=== PATIENT | female | born 1965 | race Caucasian/White ===

== ENCOUNTER 2022-02-06 14:55 | Emergency (ER) | payer BC ==
[~2022-02-06] VITALS: Ht 170.2 cm; Wt 66.5 kg
[2022-02-06] MEDS ORDERED: cloNIDine HCL 0.1 MG TAB PO ONE (15:15)
[2022-02-06] MEDS ORDERED: hydrALAZINE HCL 20 MG/ML VL IV ONE (15:15)
[2022-02-06 16:16] VITALS: BP 152/81
[2022-02-06] MEDS ORDERED: LISI-716 PO (16:28)
[2022-02-06] MEDS ORDERED: CLON0.2T PO (16:28)
== END 2022-02-06 16:44 | disposition home or self-care (01) ==
LOC: ER 14:59
DX: I16.0 Hypertensive urgency (principal)

== ENCOUNTER 2022-02-20 18:38 | Inpatient (IN) | payer BC ==
[~2022-02-20] VITALS: Ht 170.2 cm; Wt 67.0 kg
[~2022-02-20 18:38] MED LIST: CLON0.2T PO; LISI-716 PO
[2022-02-20] MEDS ORDERED: SODIUM CHLORIDE 0.9% 1,000 ML IV ONE (20:00)
[2022-02-20] MEDS ORDERED: ONDANSETRON HCL 4 MG/2 ML VIAL IV ONE (20:00)
[2022-02-20] MEDS ORDERED: cloNIDine HCL 0.1 MG TAB PO ONE (20:00)
[2022-02-20] MEDS ORDERED: ACETAMINOPHEN 325 MG TAB PO ONE (20:00)
[2022-02-20 20:50] LABS: Basophils # (auto) 0.1 10 ^3/uL (0-0.2); Basophils % (auto) 0.9 % (0.0-2.0); Eosinophils # (auto) 0 10 ^3/uL (0-0.8); Eosinophils % (auto) 0.4 % (0.0-7.0); Hematocrit 34.2 % (36.0-46.0); Hemoglobin 11.1 g/dL (12.2-16.2); Lymphocytes % (auto) 12.5 % (10.0-50.0); Mean Corpuscular Hemoglobin 27.8 pg (28.0-32.0); Mean Corpuscular Hgb Conc. 32.4 g/dL (32.0-36.0); Mean Corpuscular Volume 85.8 fL (80.0-100.0); Monocytes # (auto) 0.4 10 ^3/uL (0-1.3); Monocytes % (auto) 4.8 % (0.0-12.0); Neutrophils # (auto) 6.3 10 ^3/uL (1.6-8.6); Neutrophils % (auto) 81.4 % (37.0-80.0); Nucleated Red Blood Cells % 0.1 %; Red Blood Cells 3.99 10^6/uL (4.0-5.20); Red Cell Distribution Width 14.8 % (11.8-14.3); White Blood Cell 7.8 10^3/uL (4.4-10.8)
[2022-02-20 21:07] LABS: Albumin 2.9 g/dL (3.4-5.0); BUN/Creatinine Ratio 11.3; Calcium 9.3 mg/dL (8.5-10.1); Potassium 4.5 mmol/L (3.5-5.1)
[2022-02-20 21:10] LABS: Bilirubin, Total 0.5 mg/dL (0.2-1.0)
[2022-02-20] MEDS ORDERED: NITROGLYCERIN 0.4 MG SL TAB SL ONE (21:45)
[2022-02-20] MEDS ORDERED: ASPirin 325 MG TAB PO ONE (21:45)
[2022-02-21] MEDS ORDERED: MAALOX PLUS or MAALOX 30 ML PO ONE (00:15)
[2022-02-21] MEDS ORDERED: ONDANSETRON HCL 4 MG/2 ML VIAL IV PRN (00:15)
[2022-02-21] MEDS ORDERED: NITROGLYCERIN 0.4 MG SL TAB SL PRN (00:15)
[2022-02-21] MEDS ORDERED: DEXTROSE (50%) 50ML SYRG IV PRN (00:15)
[2022-02-21] MEDS ORDERED: LORazepam 0.5 MG TAB PO PRN (00:15)
[2022-02-21] MEDS ORDERED: MORPHINE SULFATE 4 MG/ML SYR/VIAL IV PRN (00:15)
[2022-02-21] MEDS ORDERED: ZOLPIDEM TARTRATE 5 MG TAB PO PRN (00:15)
[2022-02-21 01:36] LABS: Urine Bacteria MOD /hpf (None Seen); Urine Blood 1+ /uL (Negative); Urine Specific Gravity 1.019 (1.001-1.035); Urine WBC 3 /hpf (0 - 5)
[2022-02-21] MEDS: ENOXAPARIN SOD 80 MG/0.8ML SYRINGE SC SCH ×2 (01:57→21:52)
[2022-02-21 05:28] LABS: BUN/Creatinine Ratio 11.8; Basophils # (auto) 0.1 10 ^3/uL (0-0.2); Basophils % (auto) 0.8 % (0.0-2.0); Calcium 8.2 mg/dL (8.5-10.1); Eosinophils # (auto) 0 10 ^3/uL (0-0.8); Eosinophils % (auto) 0.1 % (0.0-7.0); Hematocrit 31.5 % (36.0-46.0); Hemoglobin 10.3 g/dL (12.2-16.2); Lymphocytes # (auto) 0.9 10 ^3/uL (0.4-5.4); Lymphocytes % (auto) 11.9 % (10.0-50.0); Mean Corpuscular Hemoglobin 28.9 pg (28.0-32.0); Mean Corpuscular Hgb Conc. 32.8 g/dL (32.0-36.0); Mean Corpuscular Volume 88.1 fL (80.0-100.0); Monocytes # (auto) 0.2 10 ^3/uL (0-1.3); Monocytes % (auto) 2.8 % (0.0-12.0); Neutrophils # (auto) 6.2 10 ^3/uL (1.6-8.6); Neutrophils % (auto) 84.4 % (37.0-80.0); Potassium 4.9 mmol/L (3.5-5.1); Red Blood Cells 3.57 10^6/uL (4.0-5.20); Red Cell Distribution Width 14.8 % (11.8-14.3); White Blood Cell 7.3 10^3/uL (4.4-10.8)
[2022-02-21] MEDS: cloNIDine HCL 0.1 MG TAB PO PRN ×2 (05:33→21:51)
[2022-02-21] MEDS: ACCU-CHEK COMFORT CURVE STRIP VI SCH ×4 (06:21→23:52)
[2022-02-21] MEDS: InsuLIN REG 1unit/0.01ml Soln (100units/ml) SC SCH ×4 (06:22→23:53)
[2022-02-21] MEDS ORDERED: SUMA25TA2 PO (07:16)
[2022-02-21] MEDS ORDERED: CHLO25TA2 PO (07:16)
[2022-02-21] MEDS ORDERED: NIFE1TAB31 PO (07:16)
[2022-02-21] MEDS ORDERED: INSRTEST IV (07:16)
[2022-02-21] MEDS ORDERED: INSU100I47 SC (07:16)
[2022-02-21 07:51] VITALS: BP 127/62
[2022-02-21 08:00] VITALS: BP 127/62
[2022-02-21] MEDS: CLOPIDOGREL BISULFATE 75 MG TAB PO SCH (09:59)
[2022-02-21] MEDS: ASPirin 81 mg TAB PO SCH (09:59)
[2022-02-21] MEDS: METOPROLOL TARTRATE 25 MG TAB PO SCH ×2 (10:00→21:49)
[2022-02-21] MEDS: DOCUSATE SOD 100 MG CAP PO SCH (10:00)
[2022-02-21] MEDS: LISINOPRIL 20 MG TAB PO SCH (10:00)
[2022-02-21 11:55] VITALS: BP 167/80
[2022-02-21 14:49] LABS: Creatinine, Urine 111 mg/dL (30.0-125.0); Sodium Urine 31 mmol/L (40-220)
[2022-02-21 14:58] LABS: Protein, Urine 915.2 mg/dL (0.0-11.9)
[2022-02-21 17:00] VITALS: BP 153/84
[2022-02-21] MEDS: ATORVASTATIN 20 MG TAB PO SCH (21:50)
[2022-02-22] VITALS (7 sets, daily range): BP systolic 122–182; BP diastolic 74–94
[2022-02-22] MEDS: ACCU-CHEK COMFORT CURVE STRIP VI SCH ×3 (05:54→18:19)
[2022-02-22] MEDS: InsuLIN REG 1unit/0.01ml Soln (100units/ml) SC SCH ×3 (05:55→19:53)
[2022-02-22 06:38] LABS: Basophils # (auto) 0.1 10 ^3/uL (0-0.2); Basophils % (auto) 1.3 % (0.0-2.0); Eosinophils # (auto) 0.1 10 ^3/uL (0-0.8); Eosinophils % (auto) 1.8 % (0.0-7.0); Hematocrit 28.9 % (36.0-46.0); Hemoglobin 9.8 g/dL (12.2-16.2); Lymphocytes # (auto) 2.4 10 ^3/uL (0.4-5.4); Lymphocytes % (auto) 31.8 % (10.0-50.0); Mean Corpuscular Hemoglobin 29.1 pg (28.0-32.0); Mean Corpuscular Hgb Conc. 33.8 g/dL (32.0-36.0); Monocytes # (auto) 0.4 10 ^3/uL (0-1.3); Monocytes % (auto) 5.1 % (0.0-12.0); Neutrophils # (auto) 4.5 10 ^3/uL (1.6-8.6); Red Blood Cells 3.36 10^6/uL (4.0-5.20); Red Cell Distribution Width 14.6 % (11.8-14.3); White Blood Cell 7.5 10^3/uL (4.4-10.8)
[2022-02-22 06:40] LABS: Potassium 4.1 mmol/L (3.5-5.1)
[2022-02-22 06:46] LABS: BUN/Creatinine Ratio 13.1; Calcium 8.5 mg/dL (8.5-10.1); Magnesium 2.5 mg/dL (1.6-2.6)
[2022-02-22] MEDS: cloNIDine HCL 0.1 MG TAB PO PRN (07:51)
[2022-02-22] MEDS: CLOPIDOGREL BISULFATE 75 MG TAB PO SCH (10:21)
[2022-02-22] MEDS: METOPROLOL TARTRATE 25 MG TAB PO SCH ×2 (10:22→22:06)
[2022-02-22] MEDS: ASPirin 81 mg TAB PO SCH (10:22)
[2022-02-22] MEDS: DOCUSATE SOD 100 MG CAP PO SCH (10:22)
[2022-02-22] MEDS: LISINOPRIL 20 MG TAB PO SCH (10:22)
[2022-02-22] MEDS: CALCIUM ACETATE 667 MG CAP PO SCH ×2 (13:05→18:19)
[2022-02-22] MEDS ORDERED: FUROSEMIDE 40 MG/4 ML VIAL IV ONE (13:30)
[2022-02-22] MEDS ORDERED: hydrALAZINE HCL 25 MG TAB PO ONE (13:45)
[2022-02-22] MEDS ORDERED: HEPARIN SODIUM (PORCINE) 5000 UNITS/ML 1ML VIAL IV ONE (21:00)
[2022-02-22 21:42] LABS: Basophils # (auto) 0.1 10 ^3/uL (0-0.2); Basophils % (auto) 1.2 % (0.0-2.0); Eosinophils # (auto) 0.1 10 ^3/uL (0-0.8); Hematocrit 28.4 % (36.0-46.0); Hemoglobin 9.5 g/dL (12.2-16.2); Lymphocytes # (auto) 1.4 10 ^3/uL (0.4-5.4); Lymphocytes % (auto) 21.2 % (10.0-50.0); Mean Corpuscular Hemoglobin 28.7 pg (28.0-32.0); Mean Corpuscular Hgb Conc. 33.5 g/dL (32.0-36.0); Mean Corpuscular Volume 85.8 fL (80.0-100.0); Monocytes # (auto) 0.4 10 ^3/uL (0-1.3); Monocytes % (auto) 6.1 % (0.0-12.0); Neutrophils # (auto) 4.5 10 ^3/uL (1.6-8.6); Neutrophils % (auto) 69.5 % (37.0-80.0); Red Blood Cells 3.31 10^6/uL (4.0-5.20); Red Cell Distribution Width 14.2 % (11.8-14.3); White Blood Cell 6.5 10^3/uL (4.4-10.8)
[2022-02-22] MEDS: ATORVASTATIN 20 MG TAB PO SCH (22:04)
[2022-02-22] MEDS: hydrALAZINE HCL 25 MG TAB PO SCH (22:05)
[2022-02-22 23:18] LABS: INR 1.06 (0.9-1.15)
[2022-02-22 23:29] LABS: Partial Thromboplastin Time 85.4 sec (24.6-33.4)
[2022-02-22] MEDS: HEPARIN DRIP/D5W 100UNITS/ML 250 ML IV SCH (23:35)
[2022-02-23] MEDS: ACCU-CHEK COMFORT CURVE STRIP VI SCH ×5 (00:05→23:35)
[2022-02-23] MEDS: InsuLIN REG 1unit/0.01ml Soln (100units/ml) SC SCH ×5 (00:06→23:42)
[2022-02-23] MEDS: cloNIDine HCL 0.1 MG TAB PO PRN ×2 (00:26→23:44)
[2022-02-23 05:00] VITALS: BP 153/82
[2022-02-23 06:31] LABS: BUN/Creatinine Ratio 13.3; Calcium 8.4 mg/dL (8.5-10.1); Potassium 4.2 mmol/L (3.5-5.1)
[2022-02-23 06:50] LABS: INR 1.02 (0.9-1.15); Partial Thromboplastin Time 38.9 sec (24.6-33.4)
[2022-02-23] MEDS: CALCIUM ACETATE 667 MG CAP PO SCH ×3 (08:09→18:11)
[2022-02-23 08:10] VITALS: BP 189/90
[2022-02-23] MEDS: ASPirin 81 mg TAB PO SCH (09:20)
[2022-02-23] MEDS: CLOPIDOGREL BISULFATE 75 MG TAB PO SCH (09:20)
[2022-02-23] MEDS: DOCUSATE SOD 100 MG CAP PO SCH (09:20)
[2022-02-23] MEDS: METOPROLOL TARTRATE 25 MG TAB PO SCH ×2 (09:21→22:01)
[2022-02-23] MEDS: LISINOPRIL 20 MG TAB PO SCH (09:21)
[2022-02-23] MEDS: hydrALAZINE HCL 25 MG TAB PO SCH ×4 (09:22→21:59)
[2022-02-23 09:51] VITALS: BP 189/90
[2022-02-23] MEDS: BUMETANIDE 2.5mg/10ml (0.25 mg/ml) INJ IV SCH ×2 (11:21→17:05)
[2022-02-23 13:40] LABS: INR 0.99 (0.9-1.15); Partial Thromboplastin Time 55.9 sec (24.6-33.4)
[2022-02-23] MEDS ORDERED: ERGOCALCIFEROL 50,000 UNIT(1.25MG) CAP PO SCH (13:45)
[2022-02-23] MEDS ORDERED: metOLazone 5 MG TAB PO ONE (13:45)
[2022-02-23] MEDS ORDERED: INSULIN LANTUS (GLARGINE) 1 /0.01ml (100units/ml) SC ONE (13:45)
[2022-02-23 14:02] VITALS: BP 179/83
[2022-02-23 17:00] VITALS: BP 190/94
[2022-02-23] MEDS: HEPARIN DRIP/D5W 100UNITS/ML 250 ML IV SCH (17:11)
[2022-02-23 19:30] LABS: INR 1.01 (0.9-1.15); Partial Thromboplastin Time 56.5 sec (24.6-33.4)
[2022-02-23] MEDS ORDERED: NIFEdipine ER 30 MG TAB PO ONE (20:30)
[2022-02-23] MEDS: ATORVASTATIN 20 MG TAB PO SCH (21:59)
[2022-02-23 22:00] VITALS: BP 212/99
[2022-02-24 01:55] LABS: Partial Thromboplastin Time 25.6 sec (24.6-33.4)
[2022-02-24] MEDS ORDERED: HEPARIN SODIUM (PORCINE) 5000 UNITS/ML 1ML VIAL IV ONE ×2 (02:30→10:30)
[2022-02-24 05:00] VITALS: BP 121/67
[2022-02-24] MEDS: hydrALAZINE HCL 25 MG TAB PO SCH (05:32)
[2022-02-24] MEDS: BUMETANIDE 2.5mg/10ml (0.25 mg/ml) INJ IV SCH ×2 (05:38→17:48)
[2022-02-24] MEDS: InsuLIN REG 1unit/0.01ml Soln (100units/ml) SC SCH ×4 (05:45→23:41)
[2022-02-24] MEDS: ACCU-CHEK COMFORT CURVE STRIP VI SCH ×4 (05:45→23:47)
[2022-02-24 06:51] LABS: Basophils # (auto) 0.1 10 ^3/uL (0-0.2); Basophils % (auto) 0.9 % (0.0-2.0); Eosinophils # (auto) 0.2 10 ^3/uL (0-0.8); Eosinophils % (auto) 2.6 % (0.0-7.0); Hemoglobin 9.9 g/dL (12.2-16.2); Lymphocytes # (auto) 1.6 10 ^3/uL (0.4-5.4); Lymphocytes % (auto) 23.9 % (10.0-50.0); Mean Corpuscular Hemoglobin 28.9 pg (28.0-32.0); Monocytes # (auto) 0.5 10 ^3/uL (0-1.3); Monocytes % (auto) 7.5 % (0.0-12.0); Neutrophils # (auto) 4.5 10 ^3/uL (1.6-8.6); Neutrophils % (auto) 65.1 % (37.0-80.0); Red Blood Cells 3.42 10^6/uL (4.0-5.20); Red Cell Distribution Width 14.6 % (11.8-14.3); White Blood Cell 6.9 10^3/uL (4.4-10.8)
[2022-02-24 07:14] LABS: Potassium 3.8 mmol/L (3.5-5.1)
[2022-02-24 07:18] LABS: BUN/Creatinine Ratio 13.5; Calcium 8.7 mg/dL (8.5-10.1)
[2022-02-24] MEDS ORDERED: ADENOSINE 55 MG in GIVE UN-DILUTED 0 ML IV ONE (08:00)
[2022-02-24 08:30] VITALS: BP 122/64
[2022-02-24] MEDS: CALCIUM ACETATE 667 MG CAP PO SCH ×3 (08:31→17:49)
[2022-02-24] MEDS: ACETAMINOPHEN 325 MG TAB PO PRN (08:40)
[2022-02-24 09:26] VITALS: BP 122/64
[2022-02-24 09:57] LABS: INR 0.97 (0.9-1.15); Partial Thromboplastin Time 26.8 sec (24.6-33.4)
[2022-02-24] MEDS: DOCUSATE SOD 100 MG CAP PO SCH (10:00)
[2022-02-24] MEDS: ASPirin 81 mg TAB PO SCH (11:12)
[2022-02-24] MEDS: METOPROLOL TARTRATE 25 MG TAB PO SCH ×2 (11:12→21:36)
[2022-02-24] MEDS: NIFEdipine ER 30 MG TAB PO SCH (11:12)
[2022-02-24] MEDS: metOLazone 5 MG TAB PO SCH (11:12)
[2022-02-24] MEDS: LISINOPRIL 20 MG TAB PO SCH (11:13)
[2022-02-24] MEDS: CLOPIDOGREL BISULFATE 75 MG TAB PO SCH (11:13)
[2022-02-24] MEDS: INSULIN LANTUS (GLARGINE) 1 /0.01ml (100units/ml) SC SCH (11:21)
[2022-02-24] MEDS: HEPARIN DRIP/D5W 100UNITS/ML 250 ML IV SCH ×2 (11:22→17:37)
[2022-02-24 12:35] VITALS: BP 164/85
[2022-02-24 17:02] VITALS: BP 150/77
[2022-02-24 18:37] LABS: INR 0.97 (0.9-1.15)
[2022-02-24] MEDS ORDERED: HEPARIN DRIP/D5W 100UNITS/ML 250 ML IV SCH (19:15)
[2022-02-24] MEDS: ATORVASTATIN 20 MG TAB PO SCH (21:36)
[2022-02-24 22:00] VITALS: BP 149/67
[2022-02-25] VITALS (8 sets, daily range): BP systolic 141–175; BP diastolic 67–95
[2022-02-25 03:30] LABS: INR 1.02 (0.9-1.15)
[2022-02-25 03:46] LABS: Partial Thromboplastin Time 121.8 sec (24.6-33.4)
[2022-02-25] MEDS ORDERED: HEPARIN DRIP/D5W 100UNITS/ML 250 ML IV SCH (05:00)
[2022-02-25] MEDS: InsuLIN REG 1unit/0.01ml Soln (100units/ml) SC SCH ×3 (06:00→17:49)
[2022-02-25] MEDS: BUMETANIDE 2.5mg/10ml (0.25 mg/ml) INJ IV SCH ×2 (06:00→17:35)
[2022-02-25] MEDS: ACCU-CHEK COMFORT CURVE STRIP VI SCH ×4 (06:10→23:58)
[2022-02-25] MEDS: ASPirin 81 mg TAB PO SCH (09:21)
[2022-02-25] MEDS: DOCUSATE SOD 100 MG CAP PO SCH (09:23)
[2022-02-25] MEDS: CALCIUM ACETATE 667 MG CAP PO SCH ×3 (09:23→17:35)
[2022-02-25] MEDS: METOPROLOL TARTRATE 25 MG TAB PO SCH ×2 (09:23→21:55)
[2022-02-25] MEDS: CLOPIDOGREL BISULFATE 75 MG TAB PO SCH (09:23)
[2022-02-25] MEDS: metOLazone 5 MG TAB PO SCH (09:24)
[2022-02-25] MEDS: LISINOPRIL 20 MG TAB PO SCH (09:24)
[2022-02-25] MEDS: NIFEdipine ER 30 MG TAB PO SCH (09:24)
[2022-02-25] MEDS: INSULIN LANTUS (GLARGINE) 1 /0.01ml (100units/ml) SC SCH (11:57)
[2022-02-25 14:09] LABS: INR 0.94 (0.9-1.15); Partial Thromboplastin Time 27.1 sec (24.6-33.4)
[2022-02-25] MEDS: hydrALAZINE HCL 25 MG TAB PO PRN (15:12)
[2022-02-25] MEDS ORDERED: HEPARIN SODIUM (PORCINE) 5000 UNITS/ML 1ML VIAL IV ONE (15:15)
[2022-02-25] MEDS: HEPARIN DRIP/D5W 100UNITS/ML 250 ML IV SCH (15:17)
[2022-02-25] MEDS: ACETAMINOPHEN 325 MG TAB PO PRN (17:43)
[2022-02-25] MEDS: ATORVASTATIN 20 MG TAB PO SCH (21:55)
[2022-02-25 23:22] LABS: INR 0.99 (0.9-1.15); Partial Thromboplastin Time 57.7 sec (24.6-33.4)
[2022-02-26] MEDS: InsuLIN REG 1unit/0.01ml Soln (100units/ml) SC SCH ×5 (00:02→22:53)
[2022-02-26] MEDS: ACCU-CHEK COMFORT CURVE STRIP VI SCH ×4 (06:18→22:53)
[2022-02-26 06:21] LABS: Basophils # (auto) 0.1 10 ^3/uL (0-0.2); Basophils % (auto) 1.2 % (0.0-2.0); Eosinophils # (auto) 0.2 10 ^3/uL (0-0.8); Eosinophils % (auto) 3.2 % (0.0-7.0); Hemoglobin 9.9 g/dL (12.2-16.2); Lymphocytes # (auto) 2.2 10 ^3/uL (0.4-5.4); Lymphocytes % (auto) 28.6 % (10.0-50.0); Mean Corpuscular Hemoglobin 28.9 pg (28.0-32.0); Mean Corpuscular Hgb Conc. 34.2 g/dL (32.0-36.0); Mean Corpuscular Volume 84.6 fL (80.0-100.0); Monocytes # (auto) 0.6 10 ^3/uL (0-1.3); Monocytes % (auto) 8.6 % (0.0-12.0); Neutrophils # (auto) 4.4 10 ^3/uL (1.6-8.6); Neutrophils % (auto) 58.4 % (37.0-80.0); Nucleated Red Blood Cells % 0.1 %; Red Blood Cells 3.43 10^6/uL (4.0-5.20); Red Cell Distribution Width 14.4 % (11.8-14.3); White Blood Cell 7.6 10^3/uL (4.4-10.8)
[2022-02-26] MEDS: BUMETANIDE 2.5mg/10ml (0.25 mg/ml) INJ IV SCH ×3 (06:22→22:21)
[2022-02-26 06:39] LABS: BUN/Creatinine Ratio 12.3; Calcium 8.8 mg/dL (8.5-10.1); Magnesium 2.2 mg/dL (1.6-2.6); Phosphorus 4.8 mg/dL (2.5-4.90); Potassium 3.8 mmol/L (3.5-5.1)
[2022-02-26 08:00] VITALS: BP 154/74
[2022-02-26] MEDS: CALCIUM ACETATE 667 MG CAP PO SCH ×3 (08:05→17:54)
[2022-02-26] MEDS: metOLazone 5 MG TAB PO SCH (08:51)
[2022-02-26] MEDS: ASPirin 81 mg TAB PO SCH (08:51)
[2022-02-26] MEDS: METOPROLOL TARTRATE 25 MG TAB PO SCH ×2 (08:52→22:49)
[2022-02-26] MEDS: LISINOPRIL 20 MG TAB PO SCH (08:52)
[2022-02-26] MEDS: NIFEdipine ER 30 MG TAB PO SCH (08:52)
[2022-02-26] MEDS: CLOPIDOGREL BISULFATE 75 MG TAB PO SCH (08:52)
[2022-02-26 08:53] VITALS: BP 154/74
[2022-02-26] MEDS: DOCUSATE SOD 100 MG CAP PO SCH (08:53)
[2022-02-26] MEDS: INSULIN LANTUS (GLARGINE) 1 /0.01ml (100units/ml) SC SCH (08:54)
[2022-02-26] MEDS: HEPARIN DRIP/D5W 100UNITS/ML 250 ML IV SCH (08:55)
[2022-02-26 09:10] LABS: Basophils # (auto) 0.1 10 ^3/uL (0-0.2); Basophils % (auto) 1.1 % (0.0-2.0); Eosinophils # (auto) 0.2 10 ^3/uL (0-0.8); Eosinophils % (auto) 2.7 % (0.0-7.0); Hematocrit 30.1 % (36.0-46.0); Hemoglobin 10.2 g/dL (12.2-16.2); Lymphocytes # (auto) 1.6 10 ^3/uL (0.4-5.4); Lymphocytes % (auto) 20.9 % (10.0-50.0); Mean Corpuscular Hemoglobin 28.9 pg (28.0-32.0); Mean Corpuscular Hgb Conc. 33.8 g/dL (32.0-36.0); Mean Corpuscular Volume 85.3 fL (80.0-100.0); Monocytes # (auto) 0.5 10 ^3/uL (0-1.3); Neutrophils # (auto) 5.2 10 ^3/uL (1.6-8.6); Neutrophils % (auto) 68.3 % (37.0-80.0); Nucleated Red Blood Cells % 0.1 %; Red Blood Cells 3.53 10^6/uL (4.0-5.20); Red Cell Distribution Width 14.2 % (11.8-14.3); White Blood Cell 7.6 10^3/uL (4.4-10.8)
[2022-02-26] MEDS ORDERED: LISI20TA28 PO (11:22)
[2022-02-26] MEDS ORDERED: BUME1TAB25 PO (11:22)
[2022-02-26] MEDS ORDERED: CALC667C5 PO (11:22)
[2022-02-26] MEDS ORDERED: METO5TAB5 PO (11:22)
[2022-02-26] MEDS ORDERED: ASPI-325 PO (11:22)
[2022-02-26] MEDS ORDERED: ATOR-47 PO (11:22)
[2022-02-26] MEDS ORDERED: CLOP75TA70 PO (11:22)
[2022-02-26] MEDS ORDERED: MET50T PO (11:22)
[2022-02-26] MEDS ORDERED: ERGO1CAP23 PO (11:22)
[2022-02-26] MEDS ORDERED: NIFE90TA49 PO (11:22)
[2022-02-26] MEDS: hydrALAZINE HCL 25 MG TAB PO PRN (12:20)
[2022-02-26 12:31] VITALS: BP 186/96
[2022-02-26 13:00] VITALS: BP 182/94
[2022-02-26] MEDS ORDERED: NIFEdipine ER 30 MG TAB PO ONE (13:30)
[2022-02-26 16:53] VITALS: BP 130/70
[2022-02-26 17:24] LABS: INR 0.97 (0.9-1.15); Partial Thromboplastin Time 58.3 sec (24.6-33.4)
[2022-02-26] MEDS: SODIUM CHLORIDE 0.9% 1,000 ML IV SCH (18:43)
[2022-02-26 20:00] VITALS: BP 130/70
[2022-02-26] MEDS: ATORVASTATIN 20 MG TAB PO SCH (22:00)
[2022-02-27] VITALS (7 sets, daily range): BP systolic 124–143; BP diastolic 60–97
[2022-02-27] MEDS: SODIUM CHLORIDE 0.9% 1,000 ML IV SCH (04:30)
[2022-02-27] MEDS: InsuLIN REG 1unit/0.01ml Soln (100units/ml) SC SCH ×3 (05:42→17:58)
[2022-02-27] MEDS: ACCU-CHEK COMFORT CURVE STRIP VI SCH ×3 (05:45→17:44)
[2022-02-27] MEDS ORDERED: ACETYLCYSTEINE ORAL for CIN 20%(200MG/ML) 4ML PO ONE (07:00)
[2022-02-27] MEDS ORDERED: SODIUM BICARBONATE 50ML VIAL 75 ML in D5W 5% 1,000 ML IV SCH (07:00)
[2022-02-27] MEDS: CALCIUM ACETATE 667 MG CAP PO SCH ×2 (08:00→12:00)
[2022-02-27] MEDS: CLOPIDOGREL BISULFATE 75 MG TAB PO SCH (09:14)
[2022-02-27] MEDS: METOPROLOL TARTRATE 25 MG TAB PO SCH (09:15)
[2022-02-27] MEDS: LISINOPRIL 20 MG TAB PO SCH (09:16)
[2022-02-27] MEDS: ASPirin 81 mg TAB PO SCH (09:16)
[2022-02-27] MEDS: metOLazone 5 MG TAB PO SCH (09:16)
[2022-02-27] MEDS: DOCUSATE SOD 100 MG CAP PO SCH (09:16)
[2022-02-27] MEDS ORDERED: IODIXANOL 320MG/ML 100ML BTL IV ONE ×2 (09:36→10:18)
[2022-02-27] MEDS ORDERED: LIDOCAINE 2%HCL (LOCAL ANESTH.) INJ 10ml MDV ONE (09:36)
[2022-02-27] MEDS ORDERED: HEPARIN SODIUM (PORCINE) 5000 UNITS/ML 1ML VIAL ONE (09:44)
[2022-02-27] MEDS ORDERED: ANGIOMAX 250 MG VIAL IV ONE (09:44)
[2022-02-27] MEDS ORDERED: VERAPAMIL 2.5MG/ML INJ 2ML VIAL IV ONE (09:44)
[2022-02-27] MEDS ORDERED: MIDAZOLAM HCL 2MG/2ML 2ml VIAL (1mg/ml) ONE (09:45)
[2022-02-27] MEDS ORDERED: fentaNYL CITRATE 100 MCG/2 ML VL ONE (09:45)
[2022-02-27] MEDS ORDERED: SODIUM CHL 0.9% 0 ML ONE (09:45)
[2022-02-27] MEDS ORDERED: INSULIN LANTUS (GLARGINE) 1 /0.01ml (100units/ml) SC SCH (10:00)
[2022-02-27] MEDS ORDERED: NIFEdipine ER 30 MG TAB PO SCH (10:00)
[2022-02-27] MEDS ORDERED: hydrALAZINE HCL 20 MG/ML VL ONE (10:45)
[2022-02-27] MEDS ORDERED: HEPARIN DRIP/D5W 100UNITS/ML 250 ML IV SCH (12:30)
[2022-02-27 12:55] LABS: Basophils # (auto) 0.1 10 ^3/uL (0-0.2); Eosinophils # (auto) 0.2 10 ^3/uL (0-0.8); Eosinophils % (auto) 2.9 % (0.0-7.0); Hematocrit 31.1 % (36.0-46.0); Hemoglobin 10.4 g/dL (12.2-16.2); Lymphocytes # (auto) 2.1 10 ^3/uL (0.4-5.4); Lymphocytes % (auto) 25.3 % (10.0-50.0); Mean Corpuscular Hgb Conc. 33.5 g/dL (32.0-36.0); Mean Corpuscular Volume 86.7 fL (80.0-100.0); Monocytes # (auto) 0.5 10 ^3/uL (0-1.3); Monocytes % (auto) 5.7 % (0.0-12.0); Neutrophils # (auto) 5.3 10 ^3/uL (1.6-8.6); Neutrophils % (auto) 65.1 % (37.0-80.0); Nucleated Red Blood Cells % 0.1 %; Red Blood Cells 3.59 10^6/uL (4.0-5.20); Red Cell Distribution Width 14.6 % (11.8-14.3); White Blood Cell 8.1 10^3/uL (4.4-10.8)
[2022-02-27 13:12] LABS: INR 0.97 (0.9-1.15); Partial Thromboplastin Time 34.3 sec (24.6-33.4)
[2022-02-27] MEDS ORDERED: SODIUM CHLORIDE 0.9% 1,000 ML IV SCH (18:15)
[2022-02-27] MEDS ORDERED: ACETYLCYSTEINE ORAL for CIN 20%(200MG/ML) 4ML PO SCH (20:00)
== END 2022-02-27 18:47 | disposition short-term general hospital (02) | DRG 280 ==
LOC: ER 18:38 → TELE 02-21 00:16 → TELE-WESTW 02-21 06:10 → WEST WING 02-22 12:45 → TELE-WESTW 02-22 17:48
PROVIDERS: ADMIT Hospitalist; ATTEND Internal Medicine
PROC: 4A023N7 Measurement of Cardiac Sampling and Pressure, Left Heart, Percutaneous Approach (ICD-10-PCS; principal; 2022-02-27)
PROC: B211YZZ Fluoroscopy of Multiple Coronary Arteries using Other Contrast (ICD-10-PCS; 2022-02-27)
PROC: B215YZZ Fluoroscopy of Left Heart using Other Contrast (ICD-10-PCS; 2022-02-27)
DX: I13.2 Hypertensive heart and chronic kidney disease with heart failure and with stage 5 chronic kidney disease, or end stage renal disease (principal); I50.31 Acute diastolic (congestive) heart failure; I21.A1 Myocardial infarction type 2; N17.0 Acute kidney failure with tubular necrosis; I16.1 Hypertensive emergency; N18.5 Chronic kidney disease, stage 5; D63.1 Anemia in chronic kidney disease; E10.22 Type 1 diabetes mellitus with diabetic chronic kidney disease; E10.40 Type 1 diabetes mellitus with diabetic neuropathy, unspecified; E10.65 Type 1 diabetes mellitus with hyperglycemia; E86.0 Dehydration; E88.09 Other disorders of plasma-protein metabolism, not elsewhere classified; G43.909 Migraine, unspecified, not intractable, without status migrainosus; R80.9 Proteinuria, unspecified; E55.9 Vitamin D deficiency, unspecified; I25.10 Atherosclerotic heart disease of native coronary artery without angina pectoris; Z79.82 Long term (current) use of aspirin; Z83.3 Family history of diabetes mellitus; Z90.710 Acquired absence of both cervix and uterus; Z79.899 Other long term (current) drug therapy
CPT/HCPCS: 36415; 70450; 71045; 76775; 78452; 78582; 80048; 80053; 81001; 82306; 82570; 82962; 83036; 83735; 83880; 83935; 83970; 84100; 84156; 84300; 84443; 84484; 85025; 85379; 85610; 85730; 87426; 93005; 93017; 93306; 96361; 96374; 99152; 99291; 99292; G0378; J0153; J1815; J2001; J2250; J2405; Q9967